=== PATIENT | male | born 1980 | race African-American/Black ===

== ENCOUNTER 2022-10-15 12:41 | Observation (INO) ==
[2022-10-15 13:10] VITALS: BP 160/90
[2022-10-15 17:08] LABS: Basophils # 0.2 10*3/uL (0.0-0.2); Basophils % 1.1 % (0.0-0.8); Eosinophils # 0.2 10*3/uL (0.0-0.87); Eosinophils % 0.8 % (0.00-10.9); Hematocrit 41.5 VOL% (42.0-52.0); Hemoglobin 14.3 GM/DL (14.0-18.0); Immature Granulocytes % 0.5 %; Immature Granulocytes Absolute 0.09 #; Lymphocytes # 12.8 10*3/uL (1.4-4.0); Lymphocytes % 65.9 % (21.2-54.2); Mean Corpuscular HGB Conc 34.5 GM/DL (32-36); Mean Corpuscular Volume 93.3 FL (87-102); Mean Platelet Volume 11.9 FL (9.6-12.0); Monocytes # 1.6 10*3/uL (0.11-0.8); Monocytes % 8.4 % (1.7-12.7); Neutrophils % 23.3 % (38.7-73.9); Platelet Count 189 T/CUMM (130-400); Red Blood Count 4.45 MC/CUMM (3.8-5.5); Red Cell Distribution Width 13.8 % (9.3-17.3); White Blood Count 19.36 T/CUMM (4-12)
[2022-10-15] MEDS ORDERED: PIPERACILLIN/TAZOBACTAM 3,375 MG in SODIUM CHLORIDE 0.9% 100 ML IV STA (17:32)
[2022-10-15 17:33] LABS: Albumin 3.7 G/DL (3.4-5.0); Bilirubin,Total 0.5 MG/DL (0.20-1.00); Calcium 9.4 MG/DL (8.5-10.1); Osmolality,Calculated 271.8 MOS/KG (273-304); Potassium 4.5 MMOL/L (3.5-5.1); Total Protein 8.9 G/DL (6.4-8.2)
[2022-10-15] MEDS ORDERED: ACETAMINOPHEN 325 MG TABLET PO PRN (17:36)
[2022-10-15] MEDS ORDERED: ONDANSETRON 4 MG/2 ML VIAL IV PRN (17:36)
[2022-10-15] MEDS ORDERED: HYDROmorphone 1 MG/1 ML SYRINGE IV PRN (17:36)
[2022-10-15 17:55] LABS: Lymphocytes 59 % (20-55); Total Cells Counted 100
[2022-10-15 17:56] LABS: Atypical Lymphocytes Few; Microcytosis 1+; Platelet Estimate Normal
[2022-10-15] MEDS ORDERED: LACTATED RINGERS 1,000 ML IV SCH (18:00)
[2022-10-15] MEDS ORDERED: PANTOPRAZOLE 40 MG TABLET PO SCH (21:00)
[2022-10-16] MEDS ORDERED: PIPERACILLIN/TAZOBACTAM 3,375 MG in SODIUM CHLORIDE 0.9% 100 ML IV SCH (02:00)
== END 2022-10-15 21:50 | disposition left against medical advice (07) ==
LOC: N.ED 12:41 → N.2W 12:41
PROVIDERS: ADMIT Student in an Organized Health Care Education/Training Program; ATTEND Student in an Organized Health Care Education/Training Program